=== PATIENT | female | born 1945 | race Caucasian/White ===

== ENCOUNTER 2016-06-16 05:28 | Emergency (ER) | payer MEDICARE | END 2016-06-16 07:02 | disposition home or self-care (01) | LOC: ER1 05:28 | DX: S10.96XA Insect bite of unspecified part of neck, initial encounter (principal); H60.92 Unspecified otitis externa, left ear; I10 Essential (primary) hypertension; E78.5 Hyperlipidemia, unspecified; E07.9 Disorder of thyroid, unspecified; Z88.0 Allergy status to penicillin; Z88.2 Allergy status to sulfonamides; Z79.899 Other long term (current) drug therapy; W57.XXXA Bitten or stung by nonvenomous insect and other nonvenomous arthropods, initial encounter | CPT/HCPCS: 99282 ==

== ENCOUNTER → 2016-06-18 | Outpatient (CLI) | payer MEDICARE | LOC: MAMO 12:50 | DX: Z12.31 Encounter for screening mammogram for malignant neoplasm of breast (principal); Z90.710 Acquired absence of both cervix and uterus | CPT/HCPCS: G0202 ==

== ENCOUNTER 2020-08-01 19:21 | Emergency (ER) | payer MEDICARE ==
[2020-08-02] MEDS ORDERED: Voltaren Gel 1 % TOP (00:20)
== END 2020-08-02 00:27 | disposition home or self-care (01) ==
LOC: ER1 19:21
DX: M25.561 Pain in right knee (principal); M79.89 Other specified soft tissue disorders; E78.5 Hyperlipidemia, unspecified; I10 Essential (primary) hypertension; E07.9 Disorder of thyroid, unspecified; Z90.710 Acquired absence of both cervix and uterus; Z88.0 Allergy status to penicillin; Z88.2 Allergy status to sulfonamides
CPT/HCPCS: 85379; 85610; 85730; 99283

== ENCOUNTER → 2020-08-02 | Outpatient (CLI) | payer MEDICARE ==
[~2020-08-02] MED LIST: Voltaren Gel 1 % TOP
== END ==
LOC: EXRD 10:30
DX: M25.561 Pain in right knee (principal); M71.21 Synovial cyst of popliteal space [Baker], right knee
CPT/HCPCS: 73560; 93971

== ENCOUNTER → 2020-09-26 | Outpatient (CLI) | payer MEDICARE | LOC: EXRD 14:19 | DX: M79.89 Other specified soft tissue disorders (principal) | CPT/HCPCS: 93971 ==

== ENCOUNTER → 2020-10-16 | Outpatient (CLI) | payer MEDICARE | LOC: MAMO 09-18 13:30 | DX: Z12.31 Encounter for screening mammogram for malignant neoplasm of breast (principal) | CPT/HCPCS: 77063; 77067 ==

== ENCOUNTER → 2021-10-31 | Outpatient (CLI) | payer MEDICARE | LOC: MAMO 10-23 11:00 | DX: Z12.31 Encounter for screening mammogram for malignant neoplasm of breast (principal) | CPT/HCPCS: 77063; 77067 ==